=== PATIENT | female | born 1945 | race Two or more races ===

== ENCOUNTER 2018-06-11 07:46 | Outpatient (CLI) | payer OTHER ==
[~2018-06-11 07:46] MED LIST: ALTACE10 MG; ALTACE10 MG PO; FLONASE16 GM NS; GILTUSS TR TAB1 EACH PO; GLIMEPIRIDE 4 MG PO; GLIMEPIRIDE4 MG; GLUCOPHAGE XR500 MG; HYDROCHLOROTH12.5 MG; METFORMIN HCL500 MG PO; METOPROLOL SUC100 MG; METOPROLOL SUCC25 MG; METROPOLOL 100 MG PO; PRAVASTATIN SOD40 MG; PRAVASTATIN SOD40 MG PO; SINGULAIR 10MG10 MG PO; ZITHROMAX TRI-500 MG PO; ZYRTEC10 MG PO
== END 2018-06-11 07:50 | disposition home or self-care (01) ==
LOC: LAB 07:46
DX: I10 Essential (primary) hypertension (principal); E11.9 Type 2 diabetes mellitus without complications; E03.8 Other specified hypothyroidism; E78.2 Mixed hyperlipidemia; K92.1 Melena

== ENCOUNTER → 2023-03-30 09:01 | Outpatient (CLI) | payer OTHER ==
[2023-03-30 10:05] LABS: URINE APPEARANCE Clear; URINE BILIRRUBIN Negative (NEGATIVE); URINE BLOOD Trace; URINE COLOR Yellow; URINE GLUCOSE Negative (NEGATIVE); URINE LEUKOCYTE Moderate; URINE NITRATE Negative; URINE PROTEIN Negative (NEGATIVE); URINE UROBILINOGEN 0.2 E.U./dl
[2023-03-30 10:08] LABS: URINE EPITHELIAL CELLS 14.6 uL (0.0-38.8); URINE RBC 17.1 uL (0.0-20.8); URINE WBC 106.6 uL (0.0-23.2)
[2023-03-30 10:38] LABS: CALCIUM 9.7 mg/dL (8.5-10.1); CREATININE SERUM 0.87 mg/dL (0.55-1.02); GFR 63.3; POTASSIUM 4.14 mEq/L (3.5-5.1); URIC ACID 4.9 mg/dL (2.5-7.5)
== END | disposition home or self-care (01) ==
LOC: LAB 09:01
PROVIDERS: ATTEND Urology
DX: N20.0 Calculus of kidney (principal); Z88.2 Allergy status to sulfonamides; Z88.6 Allergy status to analgesic agent

== ENCOUNTER 2023-10-30 08:58 | Outpatient (CLI) | payer OTHER ==
[~2023-10-30 08:58] MED LIST changes: +CARBOXYMETHYLC1 EAC1 OP; +CIPRO500 MG PO; +CLARITIN-D 121 EACH PO; +GLUMETZA1000 MG; +GLUMETZA1000 MG PO; +HUMULIN N100 UNIT/2; +HUMULIN N100 UNIT/2 SUBCUTANEO; +HUMULIN R100 UNIT/1; +MONTELUKAST SODI4 M1; +NOVOLIN R100 UNIT/1 IM; +PERCOCET 5-3251 EACH PO; +RESTASIS1 EACH OP; +SINGULAIR10 MG; +TAMS0.4C PO; +ULTRAM50 MG PO
== END 2023-10-30 09:01 | disposition home or self-care (01) ==
LOC: RAD 08:58
PROVIDERS: ATTEND Urology
DX: N20.1 Calculus of ureter (principal); N13.0 Hydronephrosis with ureteropelvic junction obstruction

== ENCOUNTER 2023-11-16 18:39 | Emergency (ER) | payer OTHER ==
[~2023-11-16] VITALS: Ht 157.5 cm; Wt 94.3 kg
[2023-11-16 20:33] LABS: HEMATOCRIT 41.5 % (36.0-45.00); HEMOGLOBIN 14.3 g/dL (12.0-15.00); MEAN CELL VOLUME 91.2 fL (80.00-100.00); MEAN CORPUSCULAR HEMOGLOBIN 31.4 pg (27.00-32.0); MEAN CORPUSCULAR HGB CONC 34.4 g/dl (32.0-36.0); PLATELET COUNT 250 K/uL (150-450); RED BLOOD COUNT 4.55 M/uL (4.00-6.00); RED CELL DISTRIBUTION WIDTH 13.5 % (11.5-14.5)
[2023-11-16 20:50] LABS: CALCIUM 9.7 mg/dL (8.5-10.1); CREATININE SERUM 1.14 mg/dL (0.55-1.02); GFR 46.22; POTASSIUM 4.52 mEq/L (3.5-5.1)
[2023-11-16 21:10] LABS: URINE APPEARANCE Cloudy; URINE BILIRRUBIN Negative (NEGATIVE); URINE BLOOD Large; URINE COLOR Yellow; URINE LEUKOCYTE Trace; URINE NITRATE Negative; URINE PROTEIN 30 (NEGATIVE)
[2023-11-16 21:12] LABS: URINE GLUCOSE 500 MG/DL (NEGATIVE)
[2023-11-16 21:14] LABS: URINE BACTERIA 259.5 uL (0.0-1933); URINE EPITHELIAL CELLS 44.6 uL (0.0-38.8); URINE RBC 543.1 uL (0.0-20.8); URINE WBC 129.5 uL (0.0-23.2)
[2023-11-16] MEDS ORDERED: TRAMADOL HCL 50 MG TABLET PO ONE (21:15)
[2023-11-16] MEDS ORDERED: ONDANSETRON HCL 2 MG/ML VIAL IV ONE (22:15)
[2023-11-16] MEDS ORDERED: TAMSULOSIN HCL 0.4 MG CAP PO ONE (22:15)
== END 2023-11-17 00:04 | disposition home or self-care (01) ==
LOC: ER 18:40
PROVIDERS: General Practice
DX: N20.9 Urinary calculus, unspecified (principal); R10.9 Unspecified abdominal pain; I10 Essential (primary) hypertension; E11.9 Type 2 diabetes mellitus without complications; Z79.84 Long term (current) use of oral hypoglycemic drugs; Z88.2 Allergy status to sulfonamides; Z88.6 Allergy status to analgesic agent
CPT/HCPCS: 36415; 74176; 74240; 96365; 99284; J2405

== ENCOUNTER 2023-11-20 00:54 | Emergency (ER) | payer OTHER ==
[~2023-11-20] VITALS: Ht 157.5 cm; Wt 94.3 kg
[2023-11-20] MEDS ORDERED: MEPERIDINE HCL/PF 50 MG/ML VIAL IM STA (01:44)
[2023-11-20] MEDS ORDERED: RINGERS SOLUTION,LACTATED 1,000 ML IV STA (01:44)
[2023-11-20] MEDS ORDERED: PROMETHAZINE HCL 50 MG/ML AMPUL IM STA (01:45)
[2023-11-20 02:54] LABS: HEMATOCRIT 37.8 % (36.0-45.00); HEMOGLOBIN 13.2 g/dL (12.0-15.00); MEAN CELL VOLUME 90.5 fL (80.00-100.00); MEAN CORPUSCULAR HEMOGLOBIN 31.5 pg (27.00-32.0); MEAN CORPUSCULAR HGB CONC 34.8 g/dl (32.0-36.0); PLATELET COUNT 201 K/uL (150-450); RED BLOOD COUNT 4.18 M/uL (4.00-6.00); RED CELL DISTRIBUTION WIDTH 13.7 % (11.5-14.5)
[2023-11-20 03:44] LABS: URINE APPEARANCE Clear; URINE BILIRRUBIN Negative (NEGATIVE); URINE BLOOD Moderate; URINE COLOR Yellow; URINE LEUKOCYTE Small; URINE NITRATE Negative; URINE PROTEIN Negative (NEGATIVE); URINE UROBILINOGEN 0.2 E.U./dl
[2023-11-20 03:48] LABS: URINE BACTERIA 86.9 uL (0.0-1933); URINE EPITHELIAL CELLS 22.1 uL (0.0-38.8); URINE RBC 17.2 uL (0.0-20.8); URINE WBC 182.5 uL (0.0-23.2)
[2023-11-20 03:55] LABS: CALCIUM 9.3 mg/dL (8.5-10.1); CREATININE SERUM 1.37 mg/dL (0.55-1.02); GFR 37.38; POTASSIUM 4.45 mEq/L (3.5-5.1)
[2023-11-20 04:04] LABS: URINE GLUCOSE 100 MG/DL (NEGATIVE)
== END 2023-11-20 04:43 | disposition home or self-care (01) ==
LOC: ER 00:55
DX: N20.1 Calculus of ureter (principal); R10.9 Unspecified abdominal pain; Z88.2 Allergy status to sulfonamides; Z88.6 Allergy status to analgesic agent
CPT/HCPCS: 36415; 74176; 96372; 99284; J2550; J3490

== ENCOUNTER 2024-01-14 07:39 | Outpatient (CLI) | payer OTHER ==
[2024-01-14 08:10] LABS: HEMATOCRIT 39.3 % (36.0-45.00); HEMOGLOBIN 13.4 g/dL (12.0-15.00); MEAN CELL VOLUME 91.2 fL (80.00-100.00); MEAN CORPUSCULAR HEMOGLOBIN 31.2 pg (27.00-32.0); MEAN CORPUSCULAR HGB CONC 34.2 g/dl (32.0-36.0); PLATELET COUNT 205 K/uL (150-450); RED BLOOD COUNT 4.31 M/uL (4.00-6.00); RED CELL DISTRIBUTION WIDTH 13.6 % (11.5-14.5)
[2024-01-14 08:38] LABS: CALCIUM 9.7 mg/dL (8.5-10.1); CREATININE SERUM 1.02 mg/dL (0.55-1.02); GFR 52.55; POTASSIUM 4.15 mEq/L (3.5-5.1)
[2024-01-14 10:14] LABS: PH,URINE 5.5 (5.0-8.0); URINE APPEARANCE Clear; URINE BILIRRUBIN Negative (NEGATIVE); URINE BLOOD Trace; URINE COLOR Yellow; URINE GLUCOSE Negative (NEGATIVE); URINE KETONE Negative (NEGATIVE); URINE LEUKOCYTE Negative; URINE NITRATE Negative; URINE PROTEIN Negative (NEGATIVE); URINE UROBILINOGEN 0.2 E.U./dl
[2024-01-14 10:18] LABS: URINE BACTERIA 50.3 uL (0.0-1933)
[2024-01-14 10:26] LABS: URINE CAST 0.15 uL (0.0-1.40); URINE RBC 0.4 uL (0.0-20.8); URINE WBC 1.5 uL (0.0-23.2)
== END 2024-01-14 07:45 | disposition home or self-care (01) ==
LOC: LAB 07:39
PROVIDERS: ATTEND Pediatrics
DX: E11.9 Type 2 diabetes mellitus without complications (principal); I10 Essential (primary) hypertension; E03.9 Hypothyroidism, unspecified; E78.2 Mixed hyperlipidemia

== ENCOUNTER → 2024-02-06 | Outpatient (CLI) | payer OTHER | END | disposition home or self-care (01) | LOC: RAD 08:27 | PROVIDERS: ATTEND Urology | DX: N20.0 Calculus of kidney (principal) ==

== ENCOUNTER 2024-02-12 10:09 | Outpatient (CLI) | payer OTHER | END 2024-02-12 10:20 | disposition home or self-care (01) | LOC: SONOGRAMA 10:09 | PROVIDERS: ATTEND Urology | DX: N20.0 Calculus of kidney (principal) ==

== ENCOUNTER → 2024-04-13 07:35 | Outpatient (CLI) | payer OTHER ==
[2024-04-13 08:09] LABS: HEMATOCRIT 41.1 % (36.0-45.00); HEMOGLOBIN 14.2 g/dL (12.0-15.00); MEAN CELL VOLUME 93.9 fL (80.00-100.00); MEAN CORPUSCULAR HEMOGLOBIN 32.4 pg (27.00-32.0); MEAN CORPUSCULAR HGB CONC 34.6 g/dl (32.0-36.0); PLATELET COUNT 217 K/uL (150-450); RED BLOOD COUNT 4.37 M/uL (4.00-6.00)
[2024-04-13 09:28] LABS: CALCIUM 9.7 mg/dL (8.5-10.1); CHOL HDL RATIO 3.4 (0-5.0); CREATININE SERUM 0.91 mg/dL (0.55-1.02); GFR 59.94; POTASSIUM 4.2 mEq/L (3.5-5.1)
[2024-04-13 09:44] LABS: URINE APPEARANCE Clear; URINE BILIRRUBIN Negative (NEGATIVE); URINE BLOOD Negative; URINE COLOR Yellow; URINE GLUCOSE Negative (NEGATIVE); URINE KETONE Trace (NEGATIVE); URINE LEUKOCYTE Trace; URINE NITRATE Negative; URINE PROTEIN Negative (NEGATIVE); URINE UROBILINOGEN 0.2 E.U./dl
[2024-04-13 09:45] LABS: URINE BACTERIA 50.3 uL (0.0-1933); URINE EPITHELIAL CELLS 14.8 uL (0.0-38.8); URINE WBC 26.2 uL (0.0-23.2)
[2024-04-13 09:59] LABS: URINE CAST 0.15 uL (0.0-1.40); URINE RBC 0.7 uL (0.0-20.8)
== END | disposition home or self-care (01) ==
LOC: LAB 07:35
PROVIDERS: ATTEND Internal Medicine Cardiovascular Disease
DX: E11.9 Type 2 diabetes mellitus without complications (principal); I10 Essential (primary) hypertension; E03.9 Hypothyroidism, unspecified; E78.2 Mixed hyperlipidemia

== ENCOUNTER 2024-06-10 07:09 | Outpatient (CLI) | payer OTHER | END 2024-06-10 07:10 | disposition home or self-care (01) | LOC: NUCLEAR 07:09 | PROVIDERS: ATTEND Internal Medicine | DX: I20.9 Angina pectoris, unspecified (principal) | CPT/HCPCS: 78452; 93017; A9500; J0153 ==

== ENCOUNTER → 2024-07-12 07:06 | Outpatient (CLI) | payer OTHER ==
[2024-07-12 08:00] LABS: HEMATOCRIT 39.7 % (36.0-45.00); HEMOGLOBIN 14.1 g/dL (12.0-15.00); MEAN CELL VOLUME 92.8 fL (80.00-100.00); MEAN CORPUSCULAR HGB CONC 35.5 g/dl (32.0-36.0); PLATELET COUNT 211 K/uL (150-450); RED BLOOD COUNT 4.28 M/uL (4.00-6.00); RED CELL DISTRIBUTION WIDTH 13.5 % (11.5-14.5)
[2024-07-12 08:07] LABS: URINE APPEARANCE Clear; URINE BILIRRUBIN Negative (NEGATIVE); URINE BLOOD Negative; URINE COLOR Yellow; URINE GLUCOSE Negative (NEGATIVE); URINE KETONE Negative (NEGATIVE); URINE LEUKOCYTE Negative; URINE NITRATE Negative; URINE PROTEIN Negative (NEGATIVE); URINE UROBILINOGEN 0.2 E.U./dl
[2024-07-12 08:11] LABS: URINE BACTERIA 34.2 uL (0.0-1933); URINE EPITHELIAL CELLS 7.5 uL (0.0-38.8); URINE WBC 6.9 uL (0.0-23.2)
[2024-07-12 08:14] LABS: URINE CAST 0.29 uL (0.0-1.40)
[2024-07-12 09:30] LABS: BILIRUBIN TOTAL 0.61 mg/dL (0.3-1.2); CALCIUM 9.5 mg/dL (8.5-10.1); CHOL HDL RATIO 2.8 (0-5.0); CREATININE SERUM 0.97 mg/dL (0.55-1.02); GFR 55.54; GLOBULINA 3.1 G/DL (2.4-3.5); POTASSIUM 3.97 mEq/L (3.5-5.1); T4 TOTAL 7.95 UG/DL (4.8-13.9); TOTAL PROTEIN 7.1 gm/dL (6.4-8.2); TSH 4.24 uIU/mL (0.358-3.74)
[2024-07-12 11:19] LABS: T3 TOTAL 1.35 ng/ml (0.846-2.02); VITAMIN D3 25 HYDROXY 37.24 ng/ml (30-120)
== END | disposition home or self-care (01) ==
LOC: LAB 07:06
PROVIDERS: ATTEND Internal Medicine Cardiovascular Disease
DX: E03.9 Hypothyroidism, unspecified (principal); E11.9 Type 2 diabetes mellitus without complications; I10 Essential (primary) hypertension; E78.2 Mixed hyperlipidemia; D64.0 Hereditary sideroblastic anemia; Z12.11 Encounter for screening for malignant neoplasm of colon; E55.9 Vitamin D deficiency, unspecified; M81.0 Age-related osteoporosis without current pathological fracture

== ENCOUNTER 2024-08-13 08:53 | Outpatient (CLI) | payer OTHER | END 2024-08-13 08:58 | disposition home or self-care (01) | LOC: RAD 08:53 | PROVIDERS: ATTEND Urology | DX: N20.0 Calculus of kidney (principal) ==

== ENCOUNTER 2024-08-15 08:23 | Outpatient (CLI) | payer OTHER ==
[2024-08-17 15:06] LABS: Citra 24 hr 384 mg/L (Undefined); cit 653 mg/24 hr (320-1240)
== END 2024-08-15 08:30 | disposition home or self-care (01) ==
LOC: LAB 08:23
PROVIDERS: ATTEND Urology
DX: N20.0 Calculus of kidney (principal); R82.991 Hypocitraturia

== ENCOUNTER → 2024-10-07 08:05 | Outpatient (CLI) | payer OTHER ==
[2024-10-07 08:47] LABS: BASO % 0.6 % (0.1-1.2); EOS # 0.17 (0.04-0.54); EOS % 3.2 % (0.7-7.0); HEMATOCRIT 42.1 % (34.1-44.9); HEMOGLOBIN 14.3 g/dL (11.2-15.7); LYMPH # 1.32 (1.18-3.74); MEAN CORPUSCULAR HEMOGLOBIN 32.1 pg (25.6-32.2); MONO # 0.55 (0.24-0.82); MONO % 10.4 % (4.7-12.5); NEUT % 60.4 % (34.0-71.1); PLATELET COUNT 179 K/uL (163-369); RED BLOOD COUNT 4.46 M/uL (3.93-5.22)
[2024-10-07 08:58] LABS: PH,URINE 5.5 (5.0-8.0); URINE APPEARANCE Clear; URINE BILIRRUBIN Negative (NEGATIVE); URINE BLOOD Negative; URINE COLOR Yellow; URINE KETONE Trace (NEGATIVE); URINE LEUKOCYTE Negative; URINE NITRATE Negative; URINE PROTEIN Negative (NEGATIVE); URINE UROBILINOGEN 0.2 E.U./dl
[2024-10-07 09:02] LABS: URINE BACTERIA 50.1 uL (0.0-1933); URINE EPITHELIAL CELLS 4.5 uL (0.0-38.8); URINE WBC 11.5 uL (0.0-23.2)
[2024-10-07 09:05] LABS: URINE GLUCOSE >=1000 MG/DL (NEGATIVE); URINE RBC 1.3 uL (0.0-20.8)
[2024-10-07 10:13] LABS: ALBUMIN 3.9 gm/dL (3.4-5.0); BILIRUBIN TOTAL 0.47 mg/dL (0.3-1.2); CALCIUM 9.5 mg/dL (8.5-10.1); CHOL HDL RATIO 2.9 (0-5.0); CREATININE SERUM 0.92 mg/dL (0.55-1.02); GFR 59.04; GLOBULINA 2.9 G/DL (2.4-3.5); POTASSIUM 4.08 mEq/L (3.5-5.1); TOTAL PROTEIN 6.8 gm/dL (6.4-8.2)
== END | disposition home or self-care (01) ==
LOC: LAB 08:05
PROVIDERS: ATTEND Internal Medicine
DX: E11.65 Type 2 diabetes mellitus with hyperglycemia (principal); E78.5 Hyperlipidemia, unspecified; I10 Essential (primary) hypertension; E03.8 Other specified hypothyroidism

== ENCOUNTER 2024-10-10 07:47 | Outpatient (CLI) | payer OTHER ==
[2024-10-10 08:44] LABS: BASO % 0.5 % (0.1-1.2); EOS # 0.21 (0.04-0.54); EOS % 3.6 % (0.7-7.0); HEMATOCRIT 43.1 % (34.1-44.9); HEMOGLOBIN 14.4 g/dL (11.2-15.7); LYMPH # 1.64 (1.18-3.74); LYMPH % 28.4 % (19.3-53.1); MEAN CORPUSCULAR HEMOGLOBIN 31.7 pg (25.6-32.2); MONO # 0.61 (0.24-0.82); MONO % 10.6 % (4.7-12.5); NEUT # 3.27 (1.56-6.13); NEUT % 56.7 % (34.0-71.1); PLATELET COUNT 206 K/uL (163-369); RED BLOOD COUNT 4.54 M/uL (3.93-5.22)
[2024-10-10 08:54] LABS: PH,URINE 5.5 (5.0-8.0); URINE APPEARANCE Clear; URINE BILIRRUBIN Negative (NEGATIVE); URINE BLOOD Negative; URINE COLOR Yellow; URINE KETONE 15 (NEGATIVE); URINE LEUKOCYTE Negative; URINE NITRATE Negative; URINE PROTEIN Negative (NEGATIVE); URINE UROBILINOGEN 0.2 E.U./dl
[2024-10-10 08:59] LABS: URINE BACTERIA 18.3 uL (0.0-1933); URINE EPITHELIAL CELLS 3.3 uL (0.0-38.8)
[2024-10-10 09:02] LABS: URINE CAST 0.29 uL (0.0-1.40); URINE GLUCOSE >=1000 MG/DL (NEGATIVE); URINE RBC 1.7 uL (0.0-20.8)
[2024-10-10 09:33] LABS: CALCIUM 9.2 mg/dL (8.5-10.1); CHOL HDL RATIO 3.1 (0-5.0); CREATININE SERUM 0.95 mg/dL (0.55-1.02); GFR 56.89; POTASSIUM 3.93 mEq/L (3.5-5.1); T4 TOTAL 7.14 UG/DL (4.8-13.9); TSH 3.09 uIU/mL (0.358-3.74)
== END 2024-10-10 07:54 | disposition home or self-care (01) ==
LOC: LAB 07:47
PROVIDERS: ATTEND Internal Medicine Cardiovascular Disease
DX: E03.9 Hypothyroidism, unspecified (principal); I10 Essential (primary) hypertension; E11.9 Type 2 diabetes mellitus without complications; E78.2 Mixed hyperlipidemia; D64.0 Hereditary sideroblastic anemia; Z12.11 Encounter for screening for malignant neoplasm of colon

== ENCOUNTER 2025-01-07 07:42 | Outpatient (CLI) | payer OTHER ==
[2025-01-07 08:42] LABS: URINE APPEARANCE Clear; URINE BILIRRUBIN Negative (NEGATIVE); URINE BLOOD Negative; URINE COLOR Yellow; URINE KETONE Trace (NEGATIVE); URINE LEUKOCYTE Negative; URINE NITRATE Negative; URINE PROTEIN Negative (NEGATIVE); URINE UROBILINOGEN 0.2 E.U./dl
[2025-01-07 08:46] LABS: URINE BACTERIA 47.9 uL (0.0-1933); URINE EPITHELIAL CELLS 23.5 uL (0.0-38.8); URINE WBC 47.6 uL (0.0-23.2)
[2025-01-07 09:07] LABS: URINE CAST 0.14 uL (0.0-1.40); URINE GLUCOSE >=1000 MG/DL (NEGATIVE); URINE RBC 1.7 uL (0.0-20.8)
[2025-01-07 09:28] LABS: BASO % 0.6 % (0.1-1.2); EOS # 0.19 (0.04-0.54); EOS % 3.0 % (0.7-7.0); LYMPH # 1.64 (1.18-3.74); LYMPH % 25.7 % (19.3-53.1); MEAN PLATELET VOLUME 10.10 fl (9.4-12.4); MONO # 0.63 (0.24-0.82); MONO % 9.9 % (4.7-12.5); NEUT # 3.88 (1.56-6.13); NEUT % 60.6 % (34.0-71.1); RED CELL DISTRIBUTION WIDTH 13.0 % (11.6-14.4)
[2025-01-07 09:51] LABS: ALT/SGPT 43.0 U/L (12-78); AST/SGOT 25.0 U/L (15-37); BILIRUBIN TOTAL 0.58 mg/dL (0.3-1.2); BUN CREA RATIO 15.0 (7.0-25.0); CHOL HDL RATIO 2.7 (0-5.0); CREATININE SERUM 1.02 mg/dL (0.55-1.02); GFR 52.41; GLOBULINA 3.5 G/DL (2.4-3.5); GLUCOSE FASTING 127.0 mg/dL (65-100); HDL 42.0 mg/dl (40-60); LDL 44.0 mg/dl (0-130); OSMOLALITY SERUM 293.0 MOSM/KG (275-295); TSH 2.63 uIU/mL (0.358-3.74); VLDL 27.0 (0-39)
== END 2025-01-07 07:48 | disposition home or self-care (01) ==
LOC: LAB 07:42
PROVIDERS: ATTEND Internal Medicine
DX: E11.65 Type 2 diabetes mellitus with hyperglycemia (principal); E78.5 Hyperlipidemia, unspecified; I10 Essential (primary) hypertension; E03.8 Other specified hypothyroidism; I11.9 Hypertensive heart disease without heart failure; E11.9 Type 2 diabetes mellitus without complications; E03.9 Hypothyroidism, unspecified; E78.2 Mixed hyperlipidemia

== ENCOUNTER 2025-04-08 07:51 | Outpatient (CLI) | payer OTHER ==
[2025-04-08 08:47] LABS: BASO % 0.5 % (0.1-1.2); EOS # 0.24 (0.04-0.54); EOS % 3.2 % (0.7-7.0); LYMPH # 1.40 (1.18-3.74); LYMPH % 18.8 % (19.3-53.1); MEAN PLATELET VOLUME 9.90 fl (9.4-12.4); MONO # 0.58 (0.24-0.82); MONO % 7.8 % (4.7-12.5); NEUT # 5.16 (1.56-6.13); NEUT % 69.4 % (34.0-71.1); RED CELL DISTRIBUTION WIDTH 12.8 % (11.6-14.4)
[2025-04-08 09:37] LABS: BUN CREA RATIO 21.0 (7.0-25.0); CHOL HDL RATIO 2.6 (0-5.0); CREATININE SERUM 0.82 mg/dL (0.55-1.02); GFR 67.42; GLUCOSE FASTING 134.0 mg/dL (65-100); HDL 49.0 mg/dl (40-60); LDL 57.0 mg/dl (0-130); OSMOLALITY SERUM 292.0 MOSM/KG (275-295); TSH 2.84 uIU/mL (0.358-3.74); VLDL 21.0 (0-39)
[2025-04-08 09:47] LABS: URINE APPEARANCE Clear; URINE BILIRRUBIN Negative (NEGATIVE); URINE BLOOD Negative; URINE COLOR Yellow; URINE KETONE Negative (NEGATIVE); URINE LEUKOCYTE Negative; URINE NITRATE Negative; URINE PROTEIN Negative (NEGATIVE); URINE UROBILINOGEN 0.2 E.U./dl
[2025-04-08 09:51] LABS: URINE BACTERIA 10.8 uL (0.0-1933); URINE EPITHELIAL CELLS 1.5 uL (0.0-38.8); URINE WBC 4.9 uL (0.0-23.2)
[2025-04-08 10:10] LABS: URINE CAST 0.58 uL (0.0-1.40); URINE GLUCOSE >=1000 MG/DL (NEGATIVE); URINE RBC 0.2 uL (0.0-20.8)
== END 2025-04-08 07:59 | disposition home or self-care (01) ==
LOC: LAB 07:51
PROVIDERS: ATTEND Internal Medicine Cardiovascular Disease
DX: E11.9 Type 2 diabetes mellitus without complications (principal); E03.9 Hypothyroidism, unspecified; E78.2 Mixed hyperlipidemia